=== PATIENT | female | born 1975 | race African-American/Black ===

== ENCOUNTER 2017-12-03 06:51 | Emergency (ER) | payer OTHER ==
[~2017-12-03] VITALS: Ht 175.3 cm; Wt 100.0 kg
[~2017-12-03 06:51] MED LIST: ANTIVERT OR; ANTIVERT25 MG OR; REGLAN10 MG OR; no home meds
[2017-12-03 07:30] LABS: HEMATOCRIT 37.4 % (37.0-47.0); HEMOGLOBIN 11.4 g/dl (12.0-16.0); IMMATURE GRANULOCYTES 0.2 % (0.0-1.0); MEAN CORPUSCULAR HGB 22.9 pG CALC (26.0-32.0); MEAN CORPUSCULAR HGB CONC 30.5 g/L CALC (32.0-36.0); NEUT# 1.81 thou/uL (2.00-7.15); RED BLOOD COUNT 4.98 mill/uL (4.20-5.60); RED CELL DISTRI WIDTH 16.9 % (11.5-15.5)
[2017-12-03 07:33] LABS: MEAN CELL VOLUME 75.1 fL CALC (80.0-100.0)
[2017-12-03 07:42] LABS: ALBUMIN 4.8 g/dL (3.2-5.0); ALKALINE PHOSPHATASE 61 u/l (38-126); ANION GAP 22 (6-22 (CALC)); BILIRUBIN, TOTAL 0.8 mg/dL (0.0-1.4); BUN 11 mg/dL (7-17); BUN/CREATININE RATIO 12 (12-20 (CALC)); CHLORIDE 105 mmol/l (95-108); CREATININE 0.9 mg/dL (0.5-1.0); GFR > 60 ML/MIN (>=60 (CALC)); GFR FOR AFR.AMER. > 60 ML/MIN (>=60 (CALC)); POTASSIUM 4.1 mmol/l (3.5-5.1); SGOT/AST 16 u/l (14-36); SGPT/ALT 23 u/l (9-52); SODIUM 142 mmol/l (137-146); TOTAL PROTEIN 8.7 g/dL (6.3-8.2)
[2017-12-03 07:50] LABS: CARBON DIOXIDE 19 mmol/l (22-30)
[2017-12-03 08:00] LABS: URINE BILIRUBIN - DIPSTICK NEGATIVE (NEGATIVE); URINE BLOOD DIPSTICK MODERATE (NEGATIVE); URINE COLOR YELLOW; URINE GLUCOSE - DIPSTICK NEGATIVE (NEGATIVE); URINE KETONE NEGATIVE (NEGATIVE); URINE LEUK ESTERASE NEGATIVE (NEGATIVE); URINE PROTEIN - DIPSTICK NEGATIVE (NEG-TRACE); URINE SPECIFIC GRAVITY 1.015
[2017-12-03 08:01] LABS: URINE CLARITY CLEAR
[2017-12-03 08:04] LABS: URINE NITRITE - DIPSTICK NEGATIVE (Negative)
[2017-12-03 08:05] LABS: BARBITURATES NEGATIVE (NEGATIVE); COCAINE NEGATIVE (NEGATIVE); METHADONE NEGATIVE (NEGATIVE); OXCYCODONE NEGATIVE (NEGATIVE); TETRAHYDROCANNABIONOL POSITIVE (NEGATIVE); TRICYLIC ANTIDEPRESSANTS NEGATIVE (NEGATIVE)
[2017-12-03 08:09] LABS: URINE BACTERIA RARE hpf; URINE EPITHELIAL CELLS FEW EPI/hpf (0-FEW); URINE WBC 0-2 WBC/hpf (0-5)
[2017-12-03 10:11] VITALS: BP 115/72
== END 2017-12-03 10:21 | disposition home or self-care (01) | DRG 204 ==
LOC: ED 06:51
PROVIDERS: Emergency Medicine
DX: R06.4 Hyperventilation (principal); R06.02 Shortness of breath; R42 Dizziness and giddiness
CPT/HCPCS: Q9967

== ENCOUNTER 2019-09-28 | Emergency (ER) | payer SELFPAY ==
[2019-09-28] MEDS ORDERED: MOTRIN800 MG PO (03:10)
[2019-09-28] MEDS ORDERED: AMOXICILLIN500 MG PO (03:10)
== END 2019-09-28 03:28 | disposition home or self-care (01) | DRG 159 ==
DX: K04.7 Periapical abscess without sinus (principal); K02.9 Dental caries, unspecified; F17.200 Nicotine dependence, unspecified, uncomplicated

== ENCOUNTER 2021-02-03 05:23 | Emergency (ER) | payer SELFPAY ==
[~2021-02-03] VITALS: Ht 175.3 cm; Wt 95.0 kg
[~2021-02-03 05:23] MED LIST changes: +AMOXICILLIN500 MG PO; +MOTRIN800 MG PO
[2021-02-03] MEDS ORDERED: PERCOCET 5/325M1 TAB PO (05:50)
[2021-02-03] MEDS ORDERED: AMOXICILLIN500 M2 PO (05:50)
[2021-02-03 05:52] VITALS: BP 130/84
== END 2021-02-03 06:02 | disposition home or self-care (01) | DRG 159 ==
LOC: ED 05:23
DX: K08.89 Other specified disorders of teeth and supporting structures (principal); F17.200 Nicotine dependence, unspecified, uncomplicated

== ENCOUNTER 2022-06-18 07:40 | Emergency (ER) | payer OTHER ==
[~2022-06-18] VITALS: Ht 175.3 cm; Wt 91.0 kg
[~2022-06-18 07:40] MED LIST changes: +AMOXICILLIN500 M2 PO; +PERCOCET 5/325M1 TAB PO
[2022-06-18 07:46] VITALS: BP 118/51
[2022-06-18 08:01] VITALS: BP 120/77
[2022-06-18 08:30] VITALS: BP 109/68
[2022-06-18 09:00] VITALS: BP 100/80
== END 2022-06-18 09:12 | disposition home or self-care (01) ==
LOC: ED 07:40
DX: M79.672 Pain in left foot (principal); F17.210 Nicotine dependence, cigarettes, uncomplicated

== ENCOUNTER 2022-07-18 08:23 | Emergency (ER) | payer OTHER ==
[~2022-07-18] VITALS: Ht 175.3 cm; Wt 86.4 kg
[2022-07-18 08:32] VITALS: BP 123/87
[2022-07-18 08:51] VITALS: BP 121/86
[2022-07-18 09:15] VITALS: BP 126/86
[2022-07-18 09:16] LABS: HEMOGLOBIN 9.6 g/dl (12.0-16.0); IMMATURE GRANULOCYTES 0.5 % (0.0-5.0); MEAN CORPUSCULAR HGB 23.2 pG CALC (26.0-32.0); MEAN CORPUSCULAR HGB CONC 30.6 g/dL CAL (32.0-36.0); NEUT# 3.97 thou/uL (2.00-7.15); RED BLOOD COUNT 4.13 mill/uL (4.20-5.60); RED CELL DISTRI WIDTH 18.3 % (11.5-15.5)
[2022-07-18 09:18] LABS: HEMATOCRIT 31.4 % (37.0-47.0)
[2022-07-18 09:26] LABS: ALBUMIN 4.1 g/dL (3.2-5.0); ALKALINE PHOSPHATASE 57 u/l (38-126); ANION GAP 11 (6-22 (CALC)); BILIRUBIN, TOTAL 0.8 mg/dL (0.0-1.4); BUN 5 mg/dL (7-17); BUN/CREATININE RATIO 7 (12-20 (CALC)); CHLORIDE 109 mmol/l (95-108); CREATININE 0.7 mg/dL (0.5-1.0); GFR FOR AFR.AMER. > 60 ML/MIN (>=60 (CALC)); GFR OTHER RACES > 60 ML/MIN (>=60 (CALC)); POTASSIUM 4.2 mmol/l (3.5-5.1); SGOT/AST 22 u/l (14-36); SODIUM 142 mmol/l (137-146); TOTAL PROTEIN 7.3 g/dL (6.3-8.2)
[2022-07-18 09:29] LABS: CARBON DIOXIDE 26 mmol/l (22-30)
[2022-07-18 12:45] VITALS: BP 126/86
== END 2022-07-18 13:19 | disposition home or self-care (01) ==
LOC: ED 08:23
PROVIDERS: Family Medicine
DX: S01.81XA Laceration without foreign body of other part of head, initial encounter (principal); S06.0X0A Concussion without loss of consciousness, initial encounter; M25.532 Pain in left wrist; F17.200 Nicotine dependence, unspecified, uncomplicated; W01.0XXA Fall on same level from slipping, tripping and stumbling without subsequent striking against object, initial encounter; Y93.E5 Activity, floor mopping and cleaning; Y92.009 Unspecified place in unspecified non-institutional (private) residence as the place of occurrence of the external cause

== ENCOUNTER 2022-07-27 10:22 | Emergency (ER) | payer OTHER ==
[~2022-07-27] VITALS: Ht 175.3 cm; Wt 90.9 kg
[2022-07-27 10:38] VITALS: BP 100/72
[2022-07-27 10:45] VITALS: BP 101/72
[2022-07-27 11:00] VITALS: BP 110/73
[2022-07-27 11:04] VITALS: BP 101/72
== END 2022-07-27 11:04 | disposition home or self-care (01) ==
LOC: ED 10:22
DX: S01.81XD Laceration without foreign body of other part of head, subsequent encounter (principal); X58.XXXD Exposure to other specified factors, subsequent encounter; F17.200 Nicotine dependence, unspecified, uncomplicated